=== PATIENT | female | born 1955 | race American Indian/Alaskan Native ===

== ENCOUNTER 2021-02-03 18:38 | Emergency (ER) | payer SELFPAY ==
--- NOTE | 2021-02-03 23:49 | Emergency Department Report ---
ED General Adult HPI - General Chief complaint: Medical Clearance Stated complaint: MEDICAL CLERANCE Time Seen by Provider: 02/03/21 21:25 Source: patient Mode of arrival: Ambulatory Limitations: No Limitations - History of Present Illness -: Gradual Location: head Radiation: non-radiation Quality: dull Consistency: constant Improves with: none Worsens with: none Associated Symptoms: denies other symptoms Treatments Prior to Arrival: none - Related Data Previous Rx's Medication Instructions Recorded Last Taken Type Meloxicam [Mobic] 7.5 mg PO QDAY #14 tablet 02/03/21 Unknown Rx Allergies Allergy/AdvReac Type Severity Reaction Status Date / Time No Known Allergies Allergy Unverified 02/03/21 19:00 ED Review of Systems ROS: Stated complaint: MEDICAL CLERANCE Other details as noted in HPI Comment: All other systems reviewed and negative ED Past Medical Hx - Medications Home Medications: Home Medications Medication Instructions Recorded Confirmed Last Taken Type Meloxicam [Mobic] 7.5 mg PO QDAY #14 tablet 02/03/21 Unknown Rx ED Physical Exam - General Limitations: No Limitations General appearance: alert, in no apparent distress - Head Head exam: Present: atraumatic, normocephalic - Eye Eye exam: Present: normal appearance, PERRL, EOMI Pupils: Present: normal accommodation - ENT ENT exam: Present: normal exam, normal orophraynx, mucous membranes moist, TM's normal bilaterally - Neck Neck exam: Present: normal inspection, full ROM - Respiratory Respiratory exam: Present: normal lung sounds bilaterally. Absent: respiratory distress, wheezes, rales, chest wall tenderness - Cardiovascular Cardiovascular Exam: Present: regular rate, normal rhythm. Absent: systolic murmur, diastolic murmur, rubs, gallop - GI/Abdominal GI/Abdominal exam: Present: soft, normal bowel sounds - Extremities Exam Extremities exam: Present: normal inspection, tenderness, other (Tenderness to the sole of her foot in the area of a plantar wart no cellulitis is present. Pulses 2+ capillary refills are brisk some decrease sensation to the toes) - Expanded Lower Extremity Exam Right Foot/Toe exam: Present: tenderness (Plantar wart present). Absent: erythema, puncture wound Neuro vascular tendon exam: Absent: no vascular compromise, abnormal cap refill, motor deficit, tendon deficit, extremity cold to touch, decreased fine/light touch, foot drop 1 - Plantar wart to this region tenderness with palpation no cellulitis present. No lymphangitis is present. - Back Exam Back exam: Present: normal inspection. Absent: CVA tenderness (R), CVA tenderness (L) - Neurological Exam Neurological exam: Present: alert, oriented X3, CN II-XII intact, normal gait, other - Psychiatric Psychiatric exam: Present: normal affect, normal mood - Skin Skin exam: Present: warm, dry, intact, normal color. Absent: rash Critical care attestation.: If time is entered above; I have spent that time in minutes in the direct care of this critically ill patient, excluding procedure time. ED Disposition Clinical Impression: Plantar wart, Neuropathy, peripheral Disposition: 01 HOME / SELF CARE / HOMELESS Is pt being admited?: No Does the pt Need Aspirin: No Condition: Stable Instructions: Plantar Warts, [id number], Peripheral Neuropathy Prescriptions: Meloxicam [Mobic] 7.5 mg PO QDAY #14 tablet Referrals: [facility] [Provider Group] - 3-5 Days PER DIMAS MD [Staff Physician] - 3-5 Days
== END 2021-02-03 23:46 | disposition home or self-care (01) ==
LOC: ED 18:38
DX: B07.0 Plantar wart (principal); G62.9 Polyneuropathy, unspecified; Z79.899 Other long term (current) drug therapy
CPT/HCPCS: 82962; 99282